=== PATIENT | female | born 1985 | race Hispanic/Latino ===

== ENCOUNTER 2022-12-01 08:36 | Outpatient (CLI) | payer OTHER | END 2022-12-01 08:37 | disposition home or self-care (01) | LOC: CSHULT 08:36 | PROVIDERS: ATTEND Nurse Practitioner Family | DX: R10.10 Upper abdominal pain, unspecified (principal); K80.20 Calculus of gallbladder without cholecystitis without obstruction; K76.9 Liver disease, unspecified | CPT/HCPCS: 76705 ==